=== PATIENT | male | born 1990 | race Caucasian/White ===

== ENCOUNTER 2022-05-06 12:30 | Emergency (ER) | payer OTHER, SELFPAY ==
[2022-05-06 12:37] VITALS: BP 132/81; PULSE 98; RESP 18; TEMP 37.1; O2SAT 96; BMI 32.1
--- NOTE | 2022-05-06 13:15 | W.ED.EXTPRO ---
HPI - Extremity Problem General: Chief complaint: Extremity Injury, Upper Stated complaint: Right arm injury Time Seen by Provider: 05/06/22 13:14 History of Present Illness: 31-year-old male patient that works at [employer] was unloading the truck when he was reaching into grab something a case of canned gravy came down on his left forearm. Patient reports pain in the forearm and in the left shoulder. No obvious deformity is noted in the forearm. Patient appears nontoxic. Patient appears in mild to moderate pain. Patient reports a history of asthma in which he uses inhalers. Associated symptoms: Deny chest pain Review of Systems General: Reports: 10 or more systems reviewed and unremarkable except in HPI and below ENMT: Denies: throat pain Card: Denies: chest pain Resp: Denies: dyspnea Musc: Reports: extremity pain Skin/Breast: Denies: new lesions Physical Exam Const: COMMON NORMALS: alert HENMT: COMMON NORMALS: normocephalic HEAD & SCALP: normocephalic Neck/C-Spine: COMMON NORMALS: full ROM Resp: COMMON NORMALS: normal respiratory effort Cardio: COMMON NORMALS: regular rate RATE: regular rate Extremity: LEFT UPPER EXTREMITY: Yes shoulder joint (Normal range of motion, patient reports pain with movement) Left shoulder joint: Yes inspection, Yes palpation, Yes ROM and Yes neurovascular exam and Yes lower arm (Tenderness to the dorsal left arm, no swelling or ecchymosis noted) Left lower arm: Yes inspection, Yes palpation and Yes neurovascular exam Neuro: SENSORIUM/ORIENTATION: Yes alert Course Vital Signs: Vital signs: Vital Signs Temperature 98.7 F 05/06/22 12:37 Pulse Rate 98 05/06/22 12:37 Respiratory Rate 18 05/06/22 12:37 Blood Pressure 132/81 05/06/22 12:37 Pulse Oximetry 96 05/06/22 12:37 MDM - Extremity (Nontraumatic) Medical Decision Making 31-year-old male patient comes in today with injury to the left forearm and shoulder. Patient was at work when a box of canned goods came down across his left forearm. Patient reports tenderness and discomfort to the forearm and left shoulder. On exam patient has normal range of motion of the extremity. Patient has some soft tissue tenderness of the forearm. Vital signs are normal. Differential diagnosis includes fracture, sprain, contusion. X-ray notes no fracture or dislocation of the shoulder or forearm. Reviewed exam with patient with recommendations for treatment for contusion and strain. Patient reported understanding and agreed to plan. Discharge Plan Discharge Patient Disposition: Home Clinical Impression: Contusion Qualifiers: Encounter type: initial encounter Contusion area: forearm Laterality: left Qualified Code(s): S50.12XA - Contusion of left forearm, initial encounter Condition: Stable Prescriptions: New ibuprofen 600 mg tablet 600 mg PO Q6H PRN (Reason: pain) Qty: 30 0RF Discharge Orders: Discharge ED (Routine); Ordered 05/06/22 Ordered By: Viktor Neal Referrals: Nathalie Tapia MD [Primary Care Provider] - Discharge Diet: Usual diet Discharge Activity: Increase activity as tolerated Patient Instructions: Contusion in Adults (ED) Activity Restrictions/Additional Instructions: Activity as tolerated. Use ice packs to the area for pain. Gentle stretching and range of motion exercises. Use acetaminophen and ibuprofen to help with pain. Wrap the forearm with an elastic bandage for comfort. Follow-up with primary care as needed. Return to ER for new concerns. Stand Alone Forms: Work/School Release Coding Level of Care Code ED [employer] for [employer] Fwd Exam Detailed
--- NOTE | 2022-05-06 13:18 | XRR_ITS ---
PROCEDURE INFORMATION: Exam: XR Left Shoulder Exam date and time: 05/06/2022 1:36 PM Age: 31 years old Clinical indication: Injury or trauma; Other: A case of canned gravy came down on his left forearm; Work related; Blunt trauma (contusions or hematomas); Shoulder TECHNIQUE: Imaging protocol: XR Left shoulder. Views: 2 or more views. COMPARISON: No relevant prior studies available. FINDINGS: Bones/joints: Normal. Soft tissues: Normal. XR/XR shoulder LT min 2V* [id number] IMPRESSION: No acute findings.
--- NOTE | 2022-05-06 13:18 | XRR_ITS ---
PROCEDURE INFORMATION: Exam: XR Left Forearm Exam date and time: 05/06/2022 1:36 PM Age: 31 years old Clinical indication: Injury or trauma; Other: A case of canned gravy came down on his left forearm; Work related; Blunt trauma (contusions or hematomas); Arm, lower TECHNIQUE: Imaging protocol: XR Left forearm. Views: 2 views. COMPARISON: No relevant prior studies available. FINDINGS: Bones/joints: Normal. Soft tissues: Normal. XR/XR forearm LT 2V [id number] IMPRESSION: No acute findings.
[2022-05-06] MEDS: ibuprofen 600 mg Tablet PO (14:10)
== END 2022-05-06 14:09 | disposition home or self-care (01) ==
PROVIDERS: Emergency Provider Nurse Practitioner Family; PCP Family Medicine
DX: S50.12XA Contusion of left forearm, initial encounter (principal); W20.8XXA Other cause of strike by thrown, projected or falling object, initial encounter
CPT/HCPCS: 73030; 73090; 99283